=== PATIENT | female | born 1965 | race Two or more races ===

== ENCOUNTER 2018-02-01 05:07 | Emergency (ER) | payer BC ==
--- NOTE | 2018-02-01 06:19 | EDM.PDOC ---
<Alma Pedraza - Last Filed: 02/01/18 06:21> ED HPI GENERAL MEDICAL PROBLEM - General Chief Complaint: Abdominal Pain Time Seen by Provider: 02/01/18 06:14 Source of Information: Reports: Patient History Limitations: Reports: No Limitations - History of Present Illness INITIAL COMMENTS - FREE TEXT/NARRATIVE: pt has pain in the epigastric area. She believes this is from her hiatal hernia. She had a recent cat scan of the abdoman which showed that she has a hiatal hernia. There is some soft tissue fullness which is related to some reduncy in the hiatal hernia. Onset: Gradual Duration: Hour(s): Location: Reports: Abdomen Associated Symptoms: Reports: Other ( She describes pain in the epigastric area. 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: Hematologic History: Reports: Anemia - Past Surgical History GI Surgical History: Reports: Appendectomy, Cholecystectomy, Hernia Repair/Other Female Surgical History: Reports: Section, Tubal Ligation Social & Family History - Tobacco Use Smoking Status *Q: Never Smoker - Caffeine Use Caffeine Use: Reports: None - Recreational Drug Use Recreational Drug Use: No ED ROS GENERAL - Review of Systems Review Of Systems: See Below Constitutional: Reports: Decreased Appetite HEENT: Reports: No Symptoms Respiratory: Reports: No Symptoms Cardiovascular: Reports: No Symptoms Endocrine: Reports: No Symptoms GI/Abdominal: Reports: Abdominal Pain, Decreased Appetite : Reports: No Symptoms Musculoskeletal: Reports: No Symptoms Skin: Reports: No Symptoms Neurological: Reports: No Symptoms Psychiatric: Reports: No Symptoms Hematologic/Lymphatic: Reports: No Symptoms ED EXAM, GI/ABD - Physical Exam Exam: See Below Text/Narrative:: pt arrived with pain in the epigastric area. She has not vomited and she is having normal bms. Exam Limited By: No Limitations General Appearance: Alert, Mild Distress Ears: Normal TMs Nose: Normal Inspection Throat/Mouth: Normal Inspection Head: Atraumatic Neck: Normal Inspection Respiratory/Chest: No Respiratory Distress Cardiovascular: Regular Rate, Rhythm GI/Abdominal Exam: Tender, Other ( in the epigastric area. ) (Female) Exam: Deferred Rectal (Female) Exam: Deferred Back Exam: Normal Inspection Extremities: Normal Inspection Neurological: Alert, Oriented, Normal Cognition Course - Vital Signs Last Recorded V/S: Last Vital Signs Temp 96.7 F 02/01/18 05:44 Pulse 58 L 02/01/18 08:51 Resp 16 02/01/18 08:51 BP 150/87 H 02/01/18 08:51 Pulse Ox 98 02/01/18 08:51 - Orders/Labs/Meds Orders: Active Orders 24 hr Category Date Time Status EKG Documentation Completion [RC] ASDIRECTED Care 02/01/18 06:43 Active EKG 12 Lead [EK] Routine Ther 02/01/18 06:43 Ordered Labs: Laboratory Tests 02/01/18 02/01/18 02/01/18 Range/Units 06:17 06:17 06:17 WBC 5.9 (4.5-11.0) K/uL RBC 4.03 (3.30-5.50) M/uL Hgb 13.3 (12.0-15.0) g/dL Hct 38.5 (36.0-48.0) % MCV 96 (80-98) fL MCH 33 H (27-31) pg MCHC 35 (32-36) % Plt Count 275 (150-400) K/uL Neut % (Auto) 54 (36-66) % Lymph % (Auto) 37 (24-44) % Dickey % (Auto) 7 H (2-6) % Eos % (Auto) 2 (2-4) % Baso % (Auto) 0 (0-1) % Sodium 140 (140-148) mmol/L Potassium 3.4 L (3.6-5.2) mmol/L Chloride 106 (100-108) mmol/L Carbon Dioxide 26 (21-32) mmol/L Anion Gap 11.4 (5.0-14.0) mmol/L BUN 22 H (7-18) mg/dL Creatinine 0.7 (0.6-1.0) mg/dL Est Cr Clr Drug Dosing 67.53 mL/min Estimated GFR (MDRD) > 60 (>60) Glucose 103 (74-106) mg/dL Calcium 9.1 (8.5-10.1) mg/dL Total Bilirubin 0.3 (0.2-1.0) mg/dL AST 29 (15-37) U/L ALT 49 (12-78) U/L Alkaline Phosphatase 114 (46-116) U/L Troponin I (0.000-0.056) ng/mL Total Protein 6.9 (6.4-8.2) g/dL Albumin 3.4 (3.4-5.0) g/dL Globulin 3.5 (2.3-3.5) g/dL Albumin/Globulin Ratio 1.0 L (1.2-2.2) Amylase (25-115) U/L Lipase 113 (73-393) U/L Urine Color Urine Appearance Urine pH (4.5-8.0) Ur Specific Warne (1.008-1.030) Urine Protein (NEGATIVE) mg/dL Urine Glucose (UA) (NEGATIVE) mg/dL Urine Ketones (NEGATIVE) mg/dL Urine Occult Blood (NEGATIVE) Urine Nitrite (NEGATIVE) Urine Bilirubin (NEGATIVE) Urine Urobilinogen (NORMAL) mg/dL Ur Leukocyte Esterase (NEGATIVE) Urine RBC (0-5) Urine WBC (0-5) Ur Epithelial Cells Amorphous Sediment Urine Bacteria Urine Mucus 02/01/18 02/01/18 02/01/18 Range/Units 06:17 06:17 06:29 WBC (4.5-11.0) K/uL RBC (3.30-5.50) M/uL Hgb (12.0-15.0) g/dL Hct (36.0-48.0) % MCV (80-98) fL MCH (27-31) pg MCHC (32-36) % Plt Count (150-400) K/uL Neut % (Auto) (36-66) % Lymph % (Auto) (24-44) % Dickey % (Auto) (2-6) % Eos % (Auto) (2-4) % Baso % (Auto) (0-1) % Sodium (140-148) mmol/L Potassium (3.6-5.2) mmol/L Chloride (100-108) mmol/L Carbon Dioxide (21-32) mmol/L Anion Gap (5.0-14.0) mmol/L BUN (7-18) mg/dL Creatinine (0.6-1.0) mg/dL Est Cr Clr Drug Dosing mL/min Estimated GFR (MDRD) (>60) Glucose (74-106) mg/dL Calcium (8.5-10.1) mg/dL Total Bilirubin (0.2-1.0) mg/dL AST (15-37) U/L ALT (12-78) U/L Alkaline Phosphatase (46-116) U/L Troponin I < 0.017 (0.000-0.056) ng/mL Total Protein (6.4-8.2) g/dL Albumin (3.4-5.0) g/dL Globulin (2.3-3.5) g/dL Albumin/Globulin Ratio (1.2-2.2) Amylase 77 (25-115) U/L Lipase (73-393) U/L Urine Color Yellow Urine Appearance Slightly cloudy Urine pH 5.0 (4.5-8.0) Ur Specific Warne 1.025 (1.008-1.030) Urine Protein Negative (NEGATIVE) mg/dL Urine Glucose (UA) Normal (NEGATIVE) mg/dL Urine Ketones Negative (NEGATIVE) mg/dL Urine Occult Blood Negative (NEGATIVE) Urine Nitrite Negative (NEGATIVE) Urine Bilirubin Negative (NEGATIVE) Urine Urobilinogen Normal (NORMAL) mg/dL Ur Leukocyte Esterase Negative (NEGATIVE) Urine RBC 0-5 (0-5) Urine WBC 0-5 (0-5) Ur Epithelial Cells Moderate Amorphous Sediment Not seen Urine Bacteria Rare Urine Mucus Not seen 02/01/18 Range/Units 08:35 WBC (4.5-11.0) K/uL RBC (3.30-5.50) M/uL Hgb (12.0-15.0) g/dL Hct (36.0-48.0) % MCV (80-98) fL MCH (27-31) pg MCHC (32-36) % Plt Count (150-400) K/uL Neut % (Auto) (36-66) % Lymph % (Auto) (24-44) % Dickey % (Auto) (2-6) % Eos % (Auto) (2-4) % Baso % (Auto) (0-1) % Sodium (140-148) mmol/L Potassium (3.6-5.2) mmol/L Chloride (100-108) mmol/L Carbon Dioxide (21-32) mmol/L Anion Gap (5.0-14.0) mmol/L BUN (7-18) mg/dL Creatinine (0.6-1.0) mg/dL Est Cr Clr Drug Dosing mL/min Estimated GFR (MDRD) (>60) Glucose (74-106) mg/dL Calcium (8.5-10.1) mg/dL Total Bilirubin (0.2-1.0) mg/dL AST (15-37) U/L ALT (12-78) U/L Alkaline Phosphatase (46-116) U/L Troponin I < 0.017 (0.000-0.056) ng/mL Total Protein (6.4-8.2) g/dL Albumin (3.4-5.0) g/dL Globulin (2.3-3.5) g/dL Albumin/Globulin Ratio (1.2-2.2) Amylase (25-115) U/L Lipase (73-393) U/L Urine Color Urine Appearance Urine pH (4.5-8.0) Ur Specific Warne (1.008-1.030) Urine Protein (NEGATIVE) mg/dL Urine Glucose (UA) (NEGATIVE) mg/dL Urine Ketones (NEGATIVE) mg/dL Urine Occult Blood (NEGATIVE) Urine Nitrite (NEGATIVE) Urine Bilirubin (NEGATIVE) Urine Urobilinogen (NORMAL) mg/dL Ur Leukocyte Esterase (NEGATIVE) Urine RBC (0-5) Urine WBC (0-5) Ur Epithelial Cells Amorphous Sediment Urine Bacteria Urine Mucus Meds: Medications Discontinued Medications Generic Name Dose Route Start Last Admin Trade Name Freq PRN Reason Stop Dose Admin Al Hydroxide/Mg Hydroxide 15 0 ml 02/01/18 06:20 02/01/18 06:24 ml/ Lidocaine HCl 15 ml PO 02/01/18 06:21 15 ml ONETIME ONE Administration Departure - Departure Disposition: Home, Self-Care 01 Clinical Impression: GERD (gastroesophageal reflux disease) Qualifiers: Esophagitis presence: esophagitis presence not specified Qualified Code(s): K21.9 - Gastro-esophageal reflux disease without esophagitis - Discharge Information Referrals: PCP,None [Primary Care Provider] - Forms: ED Department Discharge Additional Instructions: Please follow-up with your surgeon who did your original surgical procedure for your hiatal hernia, call or return to the emergency department with worsening of symptoms <OfficerMario - Last Filed: 02/01/18 09:47> Departure - Departure Time of Disposition: 09:46 Condition: Fair - Assessment/Plan Plan: Assessment Acuity = acute Site and laterality = epigastric pain Etiology = probably related to hiatal hernia combination gastroesophageal reflux disease Manifestations = none Location of injury = Home Lab values = CBC, CMP unremarkable troponin negative 2 Plan She remained asymptomatic after the GI cocktail, she has a follow-up with her surgeon who initially did the first Nuz[place] procedure This note was dictated using [employer] voice recognition software please call with any questions on syntax or grammar.
[2018-02-01] MEDS ORDERED: Alum Hydrox/Mag Hydrox/Simeth 15 ML, Lidocaine 2% 15 ML PO ONE ×2 (06:20)
== END 2018-02-01 10:25 | disposition home or self-care (01) ==
LOC: JP.ED 05:07
DX: K21.9 Gastro-esophageal reflux disease without esophagitis (principal); I10 Essential (primary) hypertension
CPT/HCPCS: 36415; 80053; 81001; 82150; 83690; 84484; 85025; 93005; 99284; A9270

== ENCOUNTER 2019-04-17 09:10 | Day surgery (SDC) | payer BC ==
[2019-04-17] MEDS: Dextrose 5%-Lactated Ringers 1,000 ML IV SCH ×2 (06:49→14:24)
[~2019-04-17 09:10] MED LIST: Acetaminophen 500 MG Tab PO ONE; Albuterol/Ipratropium 3.0-0.5 MG/3 ML Neb Soln NEB ONE; Bupivacaine 0.5%/EPINEPHrine 1:200,000 50 ML MDV ONE; Dexamethasone 4 MG/ML SDV ONE; Glycopyrrolate 0.2 MG/ML 5 ML MDV ONE; Ketamine 50 MG in Sodium Chloride 0.9% 49.5 ML IV SCH; Ketamine 500 MG/5 ML MDV IV SCH; Lactated Ringers 1,000 ML ONE; Meropenem 500 MG SDV ONE; Neostigmine Methylsulfate 1 MG/ML 5 ML Syringe ONE; Ondansetron 4 MG/2 ML SDV ONE; Propofol 200 MG/20 ML SDV ONE; Rocuronium 50 MG/5 ML Vial ONE; Succinylcholine 200 MG/10 ML MDV ONE; ceFAZolin 2 GM in Premix Bag 1 BAG IV ONE; fentaNYL 250 MCG/5 ML SDV ONE
[2019-04-17] MEDS ORDERED: fentaNYL 100 MCG/2 ML SDV IVPUSH ONE (09:16)
[2019-04-17] MEDS ORDERED: hydrOXYzine HCl 100 MG/2 ML SDV IM ONE (09:16)
[2019-04-17] MEDS ORDERED: hydrOXYzine HCl 100 MG/2 ML SDV IM PRN (10:26)
[2019-04-17] MEDS ORDERED: Ondansetron 4 MG/2 ML SDV IVPUSH PRN (10:26)
[2019-04-17] MEDS ORDERED: Albuterol/Ipratropium 3.0-0.5 MG/3 ML Neb Soln INH PRN (10:27)
[2019-04-17] MEDS ORDERED: HYDROmorphone 0.5 MG/0.5 ML Syringe IVPUSH PRN (10:28)
[2019-04-17] MEDS ORDERED: HYDROmorphone 1 MG/ML Syringe IV PRN (10:28)
[2019-04-17] MEDS: Albuterol/Ipratropium 3.0-0.5 MG/3 ML Neb Soln INH SCH ×3 (11:21→20:51)
[2019-04-17] MEDS: traMADol 50 MG Tab PO PRN ×2 (11:42→17:53)
[2019-04-17] MEDS: ceFAZolin 2 GM in Sodium Chloride 0.9% 50 ML IV SCH ×2 (14:22→22:09)
[2019-04-17] MEDS: Famotidine 20 MG Tab PO SCH (20:51)
[2019-04-18] MEDS: Dextrose 5%-Lactated Ringers 1,000 ML IV SCH (05:41)
[2019-04-18] MEDS: ceFAZolin 2 GM in Sodium Chloride 0.9% 50 ML IV SCH (05:41)
[2019-04-18] MEDS: traMADol 50 MG Tab PO PRN (05:58)
[2019-04-18] MEDS: Albuterol/Ipratropium 3.0-0.5 MG/3 ML Neb Soln INH SCH (07:11)
[2019-04-18] MEDS ORDERED: Lisinopril 20 MG Tab PO SCH (09:00)
[2019-04-18] MEDS ORDERED: Hydrochlorothiazide 25 MG Tab PO SCH (09:00)
[2019-04-18] MEDS: Famotidine 20 MG Tab PO SCH (09:46)
[2019-04-18] MEDS ORDERED: Magnesium Hydroxide 400 MG/5 ML Susp 30 ML Cup PO ONE (10:00)
--- NOTE | 2019-04-18 10:52 | DISCH ---
ADMISSION DIAGNOSES: Incisional hernia, essential hypertension requiring no medication, arthralgia of right hip, chronic pain, lumbar herniated disk, and obesity, BMI 35. DISCHARGE DIAGNOSIS: Diagnostic laparoscopy with repair of incarcerated incisional hernia and incarcerated umbilical hernia and placement of Interceed mesh. Date of surgery is 04/17/2019. Surgeon, Shen Conway MD. HISTORY: Angela Cooper is a 54-year-old female with an incarcerated incisional hernia and incarcerated umbilical hernia. After preoperative evaluation and discussion of possible risks and possible complications, she wished to proceed with surgical procedure. HOSPITAL COURSE: Angela had her surgery on 04/17/2019. She had no operative complications. On postoperative day #1, her pain was controlled, she was ambulating, vital signs were stable, and she was able to be discharged to home. PHYSICAL EXAMINATION: GENERAL: Angela is a 54-year-old female. VITAL SIGNS: Height is 5 feet 2 inches, weight is 191 pounds 9.6 ounces. TPR is 97.9, 71, 16. Blood pressure 126/66. HEENT: Negative. NECK: Supple. HEART: Regular rate and rhythm. LUNGS: Clear. ABDOMEN: Dressings dry and intact. Abdominal binder is on. EXTREMITIES: Without peripheral edema. DISPOSITION: Discharged to home. CONDITION: Stable and improving. FOLLOWUP: Followup appointment with Shen Conway MD, on 04/25/2019 at 8 a.m. DISCHARGE MEDICATIONS: Home Prescriptions: 1. Colace 100 mg p.o. b.i.d. #62. 2. Milk of Magnesia 30 mL, 2 were sent home with the patient to take 1 daily as needed for constipation. 3. Tramadol 50 mg q.6 hours p.r.n. pain #28. She is to resume home medications of: 1. Albuterol inhaler 2 puffs every 4 hours p.r.n. wheezing. 2. Aspirin 81 mg daily. 3. Lisinopril/hydrochlorothiazide 20/12.5 mg 1 daily. 4. Ranitidine 150 mg oral b.i.d. DIET: Usual diet as tolerated. Drink 8 to 10 glasses of water a day. ACTIVITY: No lifting greater than 10 pounds for 4 weeks. Other activity: Walk at least 6 times daily inside your home. Do not drive for 1 week. Shower/bathing: May shower. DISCHARGE INSTRUCTIONS: Notify provider if any fever, nausea, or vomiting. Keep site clean and dry. Wear abdominal binder for 6 weeks with a pressure dressing over the hernia site. Use incentive spirometer 10 times every hour while awake.
--- NOTE | 2019-04-22 12:38 | OR ---
DATE OF PROCEDURE: 04/17/2019 SURGEON: Shen Conway MD PREOPERATIVE DIAGNOSIS: Incisional hernia. POSTOPERATIVE DIAGNOSES: 1. Incarcerated incisional hernia. 2. Incarcerated umbilical hernia. 3. Extensive intraabdominal adhesions. OPERATIVE PROCEDURES: Diagnostic laparoscopy with lysis of extensive adhesions: 1. Repair of incarcerated incisional hernia with mesh (55224). 2. Repair of incarcerated umbilical hernia with mesh (55235). 3. Placement of Vicryl mesh across the pelvic and abdominal wall to displace viscera and limit recurrent adhesion formation (25450). ANESTHESIA: General. WOOL DYER: Reyes Zamudio MS-3. INDICATION FOR PROCEDURE: This is a 54-year-old female presenting with increasingly symptomatic incisional hernia located in the upper end of the previous lower midline incision used for a section. There may be some umbilical involvement with this as well. Plan is to proceed with a diagnostic laparoscopy with possible laparotomy, lysis of adhesions, and repair of these hernias with mesh. Potential risks including bleeding, infection, injury to underlying viscera, problems with mesh becoming infected or the hernia recurring were all reviewed, and the patient wishes to proceed. DETAILS OF PROCEDURE: The patient was taken to the operating room and placed in a supine position. After general endotracheal anesthesia was induced, a Mendoza catheter was inserted and the abdomen prepped and draped. In the left lateral abdomen, a transverse incision was made and peritoneal cavity entered under direct vision with an Optiview trocar, inflated to 15 mmHg pressure with CO2. Laparoscope was then reinserted. No underlying trocar insertion site injuries were seen. Following this, two 5 mm trocars were placed in the left abdomen. Eventually, two 5 mm trocars were placed in the right abdomen and the right abdominal wall examined. The patient was noted to have 2 sites of hernias, one directly at the umbilicus, and one somewhat below that related to the previous lower midline incision. Both of these contained incarcerated omentum within them. The incarcerated components were then dissected free. Some of the hernia sac also excised. The fascia at the far edge of the hernias, namely, incisional hernia, was then approximated with a series of 2-0 Vicryl sutures and closed with . At this point, a 20.[address] mesh with the balloon positioning system was selected. Over the center of the hernia, a small stab wound was made and the mesh was then soaked in antibiotic-containing saline solution and placed in intraperitoneal location. This mesh was then pulled up against the abdominal wall with the polypropylene side of the mesh facing the abdominal wall and the balloon inflated. This positioned the balloon up against the abdominal wall, and 2 circumferential sets of absorbable tacking screws were then placed in the circumference of the mesh, and at that point, there appeared to be good fixation in all areas. The balloon was deflated and then withdrawn, and at that point, a Vicryl mesh was placed underneath the pelvic wall and underneath the mesh as well as remainder of the abdominal wall. This was a 30 cm2 portion of Vicryl mesh, and this was also soaked with some antibiotic-containing saline solution as well. The trocars were removed and the peritoneal cavity deflated. Prior to closure, bilateral transversus abdominis plane blocks had also been placed, and upon removal of the trocars, the 12 mm trocar site was closed with 0 Vicryl stitch at the fascia level and each incision with 4-0 Vicryl skin stitch. Dressing was applied. The patient was taken to the recovery room in satisfactory condition. Shen Conway MD /[id number]
== END 2019-04-18 10:45 ==
LOC: JP.SDS 09:10 → JP.SDSSCHI 09:10 → JP.MS 09:55 → JP.SDSSCHI 09:55 → UNDODISIN 04-18 10:45 → JP.SDS 04-18 10:45
PROVIDERS: ATTEND Surgery
DX: K43.0 Incisional hernia with obstruction, without gangrene (principal); K42.0 Umbilical hernia with obstruction, without gangrene; K66.0 Peritoneal adhesions (postprocedural) (postinfection); K21.9 Gastro-esophageal reflux disease without esophagitis; I10 Essential (primary) hypertension; M25.551 Pain in right hip; G89.29 Other chronic pain; M51.26 Other intervertebral disc displacement, lumbar region; E66.9 Obesity, unspecified; Z68.35 Body mass index [BMI] 35.0-35.9, adult
CPT/HCPCS: 36415; 44700; 49653; 49655; 80053; 83735; 84100; 85027; 94640; 94762; A9270; C1713; C1781; J0171; J0330; J0690; J1100; J1170; J2020; J2185; J2405; J2704; J2710; J2795; J3010; J3410; J3490; J7042; J7050; J7120; 88302; J7620-GY

== ENCOUNTER 2019-10-20 16:28 | Emergency (ER) | payer BC ==
--- NOTE | 2019-10-20 17:20 | EDM.PDOC ---
ED HPI GENERAL MEDICAL PROBLEM - General Chief Complaint: Fever Stated Complaint: FEVER, CHILLS, Time Seen by Provider: 10/20/19 17:00 Source of Information: Reports: Patient History Limitations: Reports: No Limitations - History of Present Illness INITIAL COMMENTS - FREE TEXT/NARRATIVE: 54-year-old female with a sore throat and fever for the past 6 to 8 hours. No rash, headache, ear pain, cough or shortness of breath. Symptoms are sore throat and fever only. Her history was obtained through an trousseau consultant as she speaks no Bengali. 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 (see below) (Patient did take ibuprofen before coming in, fever is now gone) - Related Data Allergies Allergy/AdvReac Type Severity Reaction Status Date / Time No Known Allergies Allergy Verified 10/20/19 16:57 Home Meds: Home Meds Hydrochlorothiazide/Lisinopril [Lisinopril/HCTZ 20-12.5 MG] 20 - 25 mg PO DAILY 02/01/18 [History] Aspirin [Ecotrin EC] 81 mg PO DAILY 04/18/18 [History] Albuterol Sulfate [Albuterol Sulfate Hfa] 2 puff INH Q4HR PRN 04/13/19 [History] Ranitidine HCl [Ranitidine] 150 mg PO BID 04/13/19 [History] Docusate Sodium [Colace] 100 mg PO BID #60 cap 04/18/19 [Rx] Magnesium Hydroxide [Milk of Magnesia] 30 ml PO DAILY PRN 2 Days #30 ml [Rx] Past Medical History Cardiovascular History: Reports: Hypertension Gastrointestinal History: Reports: Gastritis, GERD, Hiatal Hernia Genitourinary History: Reports: None 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 Trigeminal neuralgia of left side of face Psychiatric History: Reports: Depression Endocrine/Metabolic History: Reports: Obesity/BMI 30+ Hematologic History: Reports: Anemia - Infectious Disease History Infectious Disease History: Reports: Measles - Past Surgical History Cardiovascular Surgical History: Reports: None GI Surgical History: Reports: Cholecystectomy, Hernia Repair/Other Female Surgical History: Reports: Section, Tubal Ligation Endocrine Surgical History: Reports: None Neurological Surgical History: Reports: Lumbar Spine Musculoskeletal Surgical History: Reports: None Social & Family History - Family History Family Medical History: Noncontributory Endocrine/Metabolic: Reports: Diabetes, Type I - Tobacco Use Smoking Status *Q: Never Smoker - Caffeine Use Caffeine Use: Reports: Coffee ED ROS ENT - Review of Systems Review Of Systems: See Below Constitutional: Reports: Fever, Chills Respiratory: Denies: Shortness of Breath, Cough Cardiovascular: Denies: Chest Pain GI/Abdominal: Denies: Abdominal Pain, Nausea, Vomiting ED EXAM, ENT - Physical Exam Exam: See Below Exam Limited By: No Limitations General Appearance: Alert, No Apparent Distress Eye Exam: Bilateral Eye: Normal Inspection Mouth/Throat: Pharyngeal Erythema, Tonsillar Erythema Head: Atraumatic Neck: No: Lymphadenopathy (R), Lymphadenopathy (L) Respiratory/Chest: No Respiratory Distress, Lungs Clear Cardiovascular: Regular Rate, Rhythm Neurological: Alert, Oriented Skin: Warm, Dry Course - Vital Signs Last Recorded V/S: Last Vital Signs Temp 96.9 F 10/20/19 16:48 Pulse Resp BP 144/92 H 10/20/19 16:48 Pulse Ox - Orders/Labs/Meds Orders: Active Orders 24 hr Category Date Time Status CORONAVIRUS COVID-19, JOHN Stat Lab 10/20/19 18:00 Received CULTURE STREP A CONFIRMATION [RM] Routine Lab 10/20/19 17:12 Results STREP SCRN A RAPID W CULT CONF [RM] Routine Lab 10/20/19 17:12 Results - Re-Assessments/Exams Free Text/Narrative Re-Assessment/Exam: 10/20/19 17:39 Rapid strep was obtained. This was negative so it was followed by a COVID-19 test. 10/20/19 17:57 Patient is willing to isolate at home until COVID test returns. She will return sooner if she feels she is worsening, especially difficulty breathing. Departure - Departure Time of Disposition: 18:25 Disposition: Home, Self-Care 01 Clinical Impression: Pharyngitis Qualifiers: Pharyngitis/tonsillitis etiology: unspecified etiology Qualified Code(s): J02.9 - Acute pharyngitis, unspecified - Discharge Information Instructions: Sore Throat, [id number] Referrals: PCP,None [Primary Care Provider] - Forms: ED Department Discharge Care Plan Goals: Rest, fluids, ibuprofen should help with pain. We will be in touch with you with test results when available. Return anytime if worsening or concerns. Sepsis Event Note - Evaluation Sepsis Screening Result: No Definite Risk - Focused Exam Date Exam was Performed: 10/21/19 Time Exam was Performed: 07:09 - My Orders Last 24 Hours: My Active Orders 10/20/19 17:12 CULTURE STREP A CONFIRMATION [RM] Routine STREP SCRN A RAPID W CULT CONF [RM] Routine 10/20/19 18:00 CORONAVIRUS COVID-19, JOHN Stat - Assessment/Plan Last 24 Hours: My Active Orders 10/20/19 17:12 CULTURE STREP A CONFIRMATION [RM] Routine STREP SCRN A RAPID W CULT CONF [RM] Routine 10/20/19 18:00 CORONAVIRUS COVID-19, JOHN Stat
== END 2019-10-20 18:25 | disposition home or self-care (01) ==
LOC: JP.ED 16:28
DX: J02.9 Acute pharyngitis, unspecified (principal); K21.9 Gastro-esophageal reflux disease without esophagitis; I10 Essential (primary) hypertension; E66.9 Obesity, unspecified; Z68.36 Body mass index [BMI] 36.0-36.9, adult; Z79.82 Long term (current) use of aspirin; Z79.899 Other long term (current) drug therapy
CPT/HCPCS: 87081; 87880-QW; 99283; U0002

== ENCOUNTER 2020-05-04 15:37 | Emergency (ER) | payer BC ==
--- NOTE | 2020-05-04 16:22 | EDM.PDOC ---
ED HPI GENERAL MEDICAL PROBLEM - General Chief Complaint: Abdominal Pain Stated Complaint: ABD PAIN Time Seen by Provider: 05/04/20 16:15 Source of Information: Reports: Patient History Limitations: Reports: Language Barrier - History of Present Illness INITIAL COMMENTS - FREE TEXT/NARRATIVE: 55-year-old female with epigastric pain twice today, fairly uncomfortable. She has a history of a hiatal hernia repair and cholecystectomy. She is on ranitidine twice daily. No radiation of pain to her back. Her history was relayed through an procurement specialist. No fevers or chills, some nausea but no vomiting no diarrhea or constipation. She has had episodes of pain like this in the past but this seems worse. It is somewhat better now that she is here. Onset: Sudden Location: Reports: Other (Fairly localized to the epigastric area) Associated Symptoms: Reports: Malaise (Nausea but no vomiting), Nausea/Vomiting. 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 Trigeminal neuralgia of left side of face Psychiatric History: Reports: Depression Endocrine/Metabolic History: Reports: Obesity/BMI 30+ Hematologic History: Reports: Anemia - Infectious Disease History Infectious Disease History: Reports: Measles - Past Surgical History Cardiovascular Surgical History: Reports: None GI Surgical History: Reports: Cholecystectomy, Hernia Repair/Other Female Surgical History: Reports: Section, Tubal Ligation Endocrine Surgical History: Reports: None Neurological Surgical History: Reports: Lumbar Spine Musculoskeletal Surgical History: Reports: None Social & Family History - Family History Family Medical History: No Pertinent Family History Endocrine/Metabolic: Reports: Diabetes, Type I - Caffeine Use Caffeine Use: Reports: Coffee ED ROS GENERAL - Review of Systems Review Of Systems: See Below Constitutional: Reports: Malaise. Denies: Fever, Chills HEENT: Reports: No Symptoms Respiratory: Denies: Shortness of Breath Cardiovascular: Denies: Chest Pain GI/Abdominal: Reports: Abdominal Pain, Nausea. Denies: Constipation, Diarrhea, Hematemesis, Hematochezia, Vomiting : Reports: No Symptoms Musculoskeletal: Reports: No Symptoms Skin: Reports: No Symptoms Neurological: Reports: No Symptoms Psychiatric: Reports: No Symptoms ED EXAM, GI/ABD - Physical Exam Exam: See Below Exam Limited By: No Limitations General Appearance: Alert, No Apparent Distress (Looks uncomfortable but not distressed) Eyes: Bilateral: Normal Appearance (Normal hydration, no jaundice) Head: Atraumatic Respiratory/Chest: No Respiratory Distress, Lungs Clear Cardiovascular: Regular Rate, Rhythm GI/Abdominal Exam: Normal Bowel Sounds, Soft, Tender (Minimal tenderness very localized to the epigastric area, right upper and left upper quadrants nontender) Neurological: Alert, Oriented Psychiatric: Normal Affect, Normal Mood Course - Vital Signs Last Recorded V/S: Last Vital Signs Temp 96.3 F L 05/04/20 16:10 Pulse 63 05/04/20 16:10 Resp 16 05/04/20 16:10 BP 153/86 H 05/04/20 16:10 Pulse Ox 95 05/04/20 16:10 - Orders/Labs/Meds Labs: Laboratory Tests 05/04/20 05/04/20 Range/Units 16:39 16:39 WBC 5.8 (4.5-11.0) K/uL RBC 4.33 (3.30-5.50) M/uL Hgb 13.9 (12.0-15.0) g/dL Hct 42.1 (36.0-48.0) % MCV 97 (80-98) fL MCH 32 H (27-31) pg MCHC 33 (32-36) % Plt Count 269 (150-400) K/uL Neut % (Auto) 57 (36-66) % Lymph % (Auto) 32 (24-44) % [place] % (Auto) 7 H (2-6) % Eos % (Auto) 3 (2-4) % Baso % (Auto) 0 (0-1) % Sodium 141 (140-148) mmol/L Potassium 4.0 (3.6-5.2) mmol/L Chloride 105 (100-108) mmol/L Carbon Dioxide 28 (21-32) mmol/L Anion Gap 7.9 (5.0-14.0) mmol/L BUN 24 H (7-18) mg/dL Creatinine 0.9 (0.6-1.0) mg/dL Est Cr Clr Drug Dosing 55.86 mL/min Estimated GFR (MDRD) > 60 (>60) Glucose 134 H (74-106) mg/dL Calcium 8.9 (8.5-10.1) mg/dL Total Bilirubin 0.6 D (0.2-1.0) mg/dL AST 62 H D (15-37) U/L ALT 153 H (12-78) U/L Alkaline Phosphatase 119 H (46-116) U/L Troponin I < 0.017 (0.000-0.056) ng/mL Total Protein 7.1 (6.4-8.2) g/dL Albumin 3.5 (3.4-5.0) g/dL Globulin 3.6 H (2.3-3.5) g/dL Albumin/Globulin Ratio 1.0 L (1.2-2.2) Lipase 156 (73-393) U/L Meds: Medications Discontinued Medications Generic Name Dose Route Start Last Admin Trade Name Freq PRN Reason Stop Dose Admin Al Hydroxide/Mg Hydroxide 15 0 ml 05/04/20 16:53 05/04/20 16:57 ml/ Lidocaine HCl 15 ml PO 05/04/20 16:54 30 ml ONETIME ONE Administration - Re-Assessments/Exams Free Text/Narrative Re-Assessment/Exam: 05/04/20 17:21 CBC CMP and lipase were obtained. Patient was given a GI cocktail which provided her significant relief and within 10 minutes actually resolved her pain. White count is normal, she had minimal elevation of AST and ALT but bilirubin is normal, lipase is negative. I am going to have the patient stop her ranitidine and change to Prilosec 20 mg daily for 30 days. Recheck in 2 to 3 days if not improving satisfactorily. Return anytime if worsening. Departure - Departure Time of Disposition: 17:47 Disposition: Home, Self-Care 01 Clinical Impression: Abdominal pain Qualifiers: Abdominal location: upper abdomen, unspecified Qualified Code(s): R10.10 - Upper abdominal pain, unspecified - Discharge Information Instructions: Abdominal Pain, Adult, [id number] Referrals: PCP,None [Primary Care Provider] - Forms: ED Department Discharge Care Plan Goals: Deje de ranitidina y tome Prilosec en [place] lugar gage los prximos 30 hernandez. Aumente la dieta segn la tolerancia y considere volver a controlarla en los prximos 3 a 5 hernandez si no mejora, o regresar en cualquier momento si el dolor empeora y persiste.
[2020-05-04] MEDS ORDERED: Alum Hydrox/Mag Hydrox/Simeth 15 ML, Lidocaine 2% 15 ML PO ONE ×2 (16:53)
== END 2020-05-04 17:49 | disposition home or self-care (01) ==
LOC: JP.ED 15:37
DX: R10.13 Epigastric pain (principal); I10 Essential (primary) hypertension; K21.9 Gastro-esophageal reflux disease without esophagitis; E66.9 Obesity, unspecified; Z68.38 Body mass index [BMI] 38.0-38.9, adult; Z79.899 Other long term (current) drug therapy
CPT/HCPCS: 36415; 80053; 83690; 84484; 85025; 99284; A9270

== ENCOUNTER 2021-01-01 12:23 | Emergency (ER) | payer BC ==
--- NOTE | 2021-01-01 13:53 | EDM.PDOC ---
ED HPI GENERAL MEDICAL PROBLEM - General Chief Complaint: Lower Extremity Injury/Pain Stated Complaint: knee is pained Time Seen by Provider: 01/01/21 13:40 Source of Information: Reports: Patient, Old Records, RN History Limitations: Reports: Language Barrier - History of Present Illness INITIAL COMMENTS - FREE TEXT/NARRATIVE: 55 yo non-Dutch speaking female fell onto her L knee a couple days ago. Had recently had a knee replacement performed in [place], [place]. Has not been to her orthopedist or the clinic. Onset: Sudden Onset Date: 12/29/20 Duration: Day(s):, Constant Location: Reports: Lower Extremity, Left Quality: Reports: Ache Severity: Moderate Improves with: Reports: Rest Worsens with: Reports: Movement Context: Reports: Trauma Associated Symptoms: Reports: No Other Symptoms Left Knee Pain Score (Numeric/FACES): 4 - Related Data Allergies Allergy/AdvReac Type Severity Reaction Status Date / Time No Known Allergies Allergy Verified 01/01/21 13:22 Home Meds: Home Meds Hydrochlorothiazide/Lisinopril [Lisinopril/HCTZ 20-12.5 MG] 20 - 25 mg PO DAILY 02/01/18 [History] Aspirin [Adult Low Dose Aspirin EC] 81 mg PO BID 01/01/21 [History] Cholecalciferol (Vitamin D3) [Vitamin D] 5,000 unit PO DAILY 01/01/21 [History] Hydrocodone/Acetaminophen [Hydrocodon-Acetaminophn 10-325] 1 tab PO DAILY PRN 01/01/21 [History] metFORMIN HCl [Metformin HCl ER] 500 mg PO DAILY 01/01/21 [History] Past Medical History Cardiovascular History: Reports: Hypertension Gastrointestinal History: Reports: Gastritis, GERD, Hiatal Hernia Genitourinary History: Reports: 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 Trigeminal neuralgia of left side of face Psychiatric History: Reports: Depression Endocrine/Metabolic History: Reports: Obesity/BMI 30+ Hematologic History: Reports: Anemia - Infectious Disease History Infectious Disease History: Reports: Measles - Past Surgical History Cardiovascular Surgical History: Reports: None GI Surgical History: Reports: Cholecystectomy, Hernia Repair/Other, Other (See Below) Other GI Surgeries/Procedures: MANOMETRY ESOPHAGEAL, LISSETT Female Surgical History: Reports: Section, Tubal Ligation Endocrine Surgical History: Reports: None Neurological Surgical History: Reports: Lumbar Spine Musculoskeletal Surgical History: Reports: None Social & Family History - Family History Family Medical History: No Pertinent Family History Endocrine/Metabolic: Reports: Diabetes, Type I - Tobacco Use Tobacco Use Status *Q: Never Tobacco User Second Hand Smoke Exposure: No - Caffeine Use Caffeine Use: Reports: Soda Other Caffeine Use: 1- 2 cans week - Recreational Drug Use Recreational Drug Use: No Review of Systems - Review of Systems Review Of Systems: See Below Constitutional: Reports: No Symptoms Musculoskeletal: Reports: Joint Pain (L knee) Skin: Reports: No Symptoms Neurological: Reports: No Symptoms ED EXAM, GENERAL - Physical Exam Exam: See Below Exam Limited By: No Limitations General Appearance: Alert, WD/WN, No Apparent Distress Extremities: Normal Inspection, No Pedal Edema, Limited Range of Motion, Other (no new bleeding or opening of surgical wound). No: Normal Range of Motion (decreased due to recent surgery), Non-Tender Neurological: Alert, Oriented, CN II-XII Intact, Normal Cognition, No Motor/Sensory Deficits Skin Exam: Warm, Dry, No Rash, Ecchymosis (some normal post-op brusing of the L ankle area. ) Course - Vital Signs Last Recorded V/S: Last Vital Signs Temp 35.8 C L 01/01/21 13:29 Pulse 91 01/01/21 13:29 Resp 20 01/01/21 13:29 BP 122/75 01/01/21 13:29 Pulse Ox 100 01/01/21 13:29 - Orders/Labs/Meds Orders: Active Orders 24 hr Category Date Time Status Knee 3V Lt [CR] Stat Exams 01/01/21 13:48 Taken - Radiology Interpretation Free Text/Narrative:: L knee X-ray-neg Departure - Departure Time of Disposition: 14:47 Disposition: Home, Self-Care 01 Condition: Good Clinical Impression: Contusion of left knee Qualifiers: Encounter type: initial encounter Qualified Code(s): S80.02XA - Contusion of left knee, initial encounter - Discharge Information *PRESCRIPTION DRUG MONITORING PROGRAM REVIEWED*: Not Applicable *COPY OF PRESCRIPTION DRUG MONITORING REPORT IN PATIENT RACHEL: Not Applicable Instructions: Contusion, [id number] Referrals: PCP,None [Primary Care Provider] - Forms: ED Department Discharge Additional Instructions: Continue your present cares and medications. If you need more pain medicine discuss this with your doctor(s). Sepsis Event Note (ED) - Evaluation Sepsis Screening Result: No Definite Risk - Focused Exam Vital Signs: Vital Signs Temp Pulse Resp BP Pulse Ox 01/01/21 13:29 35.8 C L 91 20 122/75 100 01/01/21 12:40 35.8 C L 91 20 122/75 100 - My Orders Last 24 Hours: My Active Orders 01/01/21 13:48 Knee 3V Lt [CR] Stat - Assessment/Plan Last 24 Hours: My Active Orders 01/01/21 13:48 Knee 3V Lt [CR] Stat
--- NOTE | 2021-01-01 15:21 | CR ---
Knee 3V Lt CLINICAL HISTORY: Fall, recent knee replacement FINDINGS: No acute fracture or dislocation is noted. There are no osseous lesions. Patient has had recent total knee arthroplasty. Components appear well seated. Impression: Total knee arthroplasty appears intact
== END 2021-01-01 15:38 | disposition home or self-care (01) ==
LOC: JP.ED 12:23
DX: S80.02XA Contusion of left knee, initial encounter (principal); I10 Essential (primary) hypertension; E66.9 Obesity, unspecified; Z68.30 Body mass index [BMI] 30.0-30.9, adult; Z79.82 Long term (current) use of aspirin; Z96.659 Presence of unspecified artificial knee joint; Z79.84 Long term (current) use of oral hypoglycemic drugs; W18.39XA Other fall on same level, initial encounter
CPT/HCPCS: 73562-26-LT; 73562-LT; 99283-25

== ENCOUNTER 2021-09-04 00:32 | Emergency (ER) | payer BC, MEDICAID ==
[2021-09-04] MEDS: Famotidine 20 MG Tab PO ONE (02:14)
[2021-09-04] MEDS: Acetaminophen 500 MG Tab PO ONE (02:14)
== END 2021-09-04 03:11 | disposition home or self-care (01) ==
LOC: JP.ED 00:32
DX: K29.00 Acute gastritis without bleeding (principal); K21.9 Gastro-esophageal reflux disease without esophagitis; I10 Essential (primary) hypertension; E66.9 Obesity, unspecified; Z68.41 Body mass index [BMI] 40.0-44.9, adult; Z79.82 Long term (current) use of aspirin; Z79.84 Long term (current) use of oral hypoglycemic drugs; Z79.899 Other long term (current) drug therapy
CPT/HCPCS: 36415; 80053; 83690; 85025; 93005; 93010; 99283; 99284-25; A9270-GY

== ENCOUNTER 2021-10-28 06:59 | Day surgery (SDC) | payer MEDICAID ==
[2021-10-28] MEDS: Nozin Nasal Sanitizer NASBOTH SCH ×2 (07:00→20:34)
[2021-10-28] MEDS ORDERED: Bupivacaine 0.5% 50 ML MDV ONE (07:00)
[2021-10-28] MEDS ORDERED: Midazolam 1 MG/ML 2 ML SDV ONE (07:34)
[2021-10-28] MEDS ORDERED: fentaNYL 100 MCG/2 ML SDV ONE (07:34)
[2021-10-28] MEDS ORDERED: Propofol 200 MG/20 ML SDV ONE (07:34)
[2021-10-28] MEDS ORDERED: Lactated Ringers 1,000 ML IV SCH ×2 (08:00→09:00)
[2021-10-28 08:02] LABS: ESTIMATED GFR 86 mL/min (>60)
[2021-10-28] MEDS ORDERED: ceFAZolin 2 GM in Premix Bag 1 BAG IV ONE (08:30)
[2021-10-28] MEDS ORDERED: traMADol 50 MG Tab PO PRN (11:41)
[2021-10-28] MEDS ORDERED: Ondansetron 4 MG/2 ML SDV IVPUSH PRN (11:41)
[2021-10-28] MEDS ORDERED: HYDROmorphone 0.5 MG/0.5 ML Syringe IVPUSH PRN (11:41)
[2021-10-28] MEDS ORDERED: oxyCODONE 5 MG Tab PO PRN (11:41)
[2021-10-28] MEDS ORDERED: ceFAZolin 1 GM in Sodium Chloride 0.9% 50 ML IV SCH (11:45)
[2021-10-28] MEDS: Ketorolac 30 MG/ML SDV IVPUSH SCH ×2 (13:13→20:31)
[2021-10-28] MEDS: Acetaminophen 500 MG Tab PO SCH ×2 (13:13→20:30)
[2021-10-28] MEDS: oxyCODONE 5 MG Tab PO PRN (15:38)
[2021-10-28] MEDS: Sodium Chloride 0.9% 1,000 ML IV SCH (16:52)
[2021-10-28] MEDS: metFORMIN 500 MG Tab PO SCH (16:53)
[2021-10-28] MEDS: ceFAZolin 1 GM in Premix Bag 1 BAG IV SCH (17:00)
[2021-10-28] MEDS: Docusate Sodium 100 MG Cap PO SCH (20:30)
[2021-10-28] MEDS ORDERED: Nozin Nasal Sanitizer NASBOTH SCH (21:00)
[2021-10-29] MEDS: Sodium Chloride 0.9% 1,000 ML IV SCH (02:01)
[2021-10-29] MEDS: ceFAZolin 1 GM in Premix Bag 1 BAG IV SCH ×2 (02:01→09:52)
[2021-10-29] MEDS: Acetaminophen 500 MG Tab PO SCH ×3 (02:13→14:56)
[2021-10-29] MEDS: oxyCODONE 5 MG Tab PO PRN ×2 (07:56→16:40)
[2021-10-29] MEDS: metFORMIN 500 MG Tab PO SCH (07:57)
[2021-10-29] MEDS: Nozin Nasal Sanitizer NASBOTH SCH (08:42)
[2021-10-29] MEDS: Docusate Sodium 100 MG Cap PO SCH (08:43)
[2021-10-29] MEDS ORDERED: Enoxaparin 30 MG/0.3 ML Syringe SUBCUT SCH (09:00)
[2021-10-29] MEDS ORDERED: Lisinopril 20 MG Tab PO SCH (09:00)
[2021-10-29] MEDS ORDERED: [UNRECOGNIZED DRUG - OTHER] PO SCH (09:00)
[2021-10-29] MEDS ORDERED: HYDROCHLOROTHIAZIDE PO SCH (09:00)
[2021-10-29] MEDS ORDERED: LISINOPRIL PO SCH (09:00)
[2021-10-29] MEDS ORDERED: Non-Formulary Medication 1 Each (Metformin Hcl [Metformin Hcl Er] 500 MG Tab.Er.24h) PO SCH (09:00)
[2021-10-29] MEDS ORDERED: Hydrochlorothiazide 25 MG Tab PO SCH (09:00)
[2021-10-29] MEDS ORDERED: Celecoxib 200 MG Cap PO SCH (09:00)
== END 2021-10-29 17:20 | disposition home or self-care (01) ==
LOC: JP.SDS 06:59 → JP.2SS 11:41 → JP.SDS 10-29 17:20
PROVIDERS: ATTEND Specialist
DX: T84.498A Other mechanical complication of other internal orthopedic devices, implants and grafts, initial encounter (principal); M23.52 Chronic instability of knee, left knee; I10 Essential (primary) hypertension; K21.9 Gastro-esophageal reflux disease without esophagitis; E11.9 Type 2 diabetes mellitus without complications; F32.A Depression, unspecified
CPT/HCPCS: 27486; 36415; 73560-26-LT; 73560-LT; 80053; 82947; 85027; 97110-GP; 97116-GP; 97161-GP; 97530-GP; 97535-GP; A9270-GY; C1776; J0690; J1650; J1885; J2250; J2704; J3010; J3490; J7030; J7120

== ENCOUNTER 2022-09-15 06:21 | Day surgery (SDC) | payer MEDICAID ==
[2022-09-15] MEDS ORDERED: Nozin Nasal Sanitizer NASBOTH ONE (06:30)
[2022-09-15] MEDS ORDERED: Bupivacaine 0.5% 30 ML SDV ONE (06:54)
[2022-09-15 06:56] LABS: HEMATOCRIT 44.7 % (34.3-46.0); MEAN CORPUSCULAR HEMOGLOBIN 32.8 pg (31.6-35.5); MEAN CORPUSCULAR HGB CONC 33.6 g/dL (31.6-35.5); MEAN CORPUSCULAR VOLUME 97.6 fL (81.4-99.0); RED BLOOD CELL COUNT 4.58 M/uL (3.77-5.24); WHITE BLOOD CELL COUNT,WBC 7.7 K/uL (3.2-11.0)
[2022-09-15 07:16] LABS: ALANINE AMINOTRANSFERASE,ALT 61 U/L (12-78); ALBUMIN 3.9 g/dL (3.4-5.0); ALKALINE PHOSPHATASE 138 U/L (46-116); ASPARTATE AMNIOTRANSFERASE,AST 22 U/L (15-37); BILIRUBIN TOTAL 0.6 mg/dL (0.2-1.0); BLOOD UREA NITROGEN,BUN 27 mg/dL (7-18); CALCIUM 9.5 mg/dL (8.5-10.1); CARBON DIOXIDE,CO2 28 mmol/L (21-32); CHLORIDE,CL 98 mmol/L (100-108); CREATININE 0.9 mg/dL (0.6-1.0); EST CRCL DRUG DOSING (CG) 54.55 mL/min; ESTIMATED GFR 75 mL/min (>60); GLUCOSE RANDOM 217 mg/dL (74-106); POTASSIUM,K 3.7 mmol/L (3.6-5.2); SODIUM,NA 133 mmol/L (140-148)
[2022-09-15] MEDS ORDERED: fentaNYL 250 MCG/5 ML SDV ONE (07:18)
[2022-09-15] MEDS ORDERED: Rocuronium 50 MG/5 ML Vial ONE (07:19)
[2022-09-15] MEDS ORDERED: Dexamethasone 4 MG/ML SDV ONE (07:19)
[2022-09-15] MEDS ORDERED: Propofol 200 MG/20 ML SDV ONE (07:19)
[2022-09-15] MEDS ORDERED: Glycopyrrolate 0.2 MG/ML 5 ML MDV ONE (07:19)
[2022-09-15] MEDS ORDERED: Neostigmine Methylsulfate 1 MG/ML 5 ML Syringe ONE (07:19)
[2022-09-15] MEDS ORDERED: Ondansetron 4 MG/2 ML SDV ONE (07:19)
[2022-09-15] MEDS ORDERED: Succinylcholine 200 MG/10 ML MDV ONE (07:19)
[2022-09-15] MEDS ORDERED: Lactated Ringers 1,000 ML IV SCH (07:30)
[2022-09-15] MEDS ORDERED: ceFAZolin 2 GM in Premix Bag 1 BAG IV ONE (07:30)
[2022-09-15 07:38] LABS: ANION GAP 10.7 mmol/L (5.0-14.0)
[2022-09-15] MEDS ORDERED: Acetaminophen/HYDROcodone 325-5 MG Tab PO ONE (10:05)
== END 2022-09-15 12:06 | disposition home or self-care (01) ==
LOC: JP.SDS 06:21
PROVIDERS: ATTEND Specialist
DX: M65.862 Other synovitis and tenosynovitis, left lower leg (principal); M25.462 Effusion, left knee; I10 Essential (primary) hypertension; K21.9 Gastro-esophageal reflux disease without esophagitis; F32.A Depression, unspecified; E11.9 Type 2 diabetes mellitus without complications; E66.9 Obesity, unspecified; Z96.652 Presence of left artificial knee joint; Z79.899 Other long term (current) drug therapy
CPT/HCPCS: 29875; 36415; 80053; 85027; A9270; J0330; J0690; J1100; J2405; J2704; J2710; J3010; J3490; J7120

== ENCOUNTER 2022-09-16 16:42 | Emergency (ER) | payer MEDICAID | END 2022-09-16 18:03 | disposition home or self-care (01) | LOC: JP.ED 16:42 | DX: M96.830 Postprocedural hemorrhage of a musculoskeletal structure following a musculoskeletal system procedure (principal); I10 Essential (primary) hypertension; E11.9 Type 2 diabetes mellitus without complications; K21.9 Gastro-esophageal reflux disease without esophagitis; E66.9 Obesity, unspecified; Z79.84 Long term (current) use of oral hypoglycemic drugs; Z68.38 Body mass index [BMI] 38.0-38.9, adult | CPT/HCPCS: 99283; 99284 ==

== ENCOUNTER 2022-12-08 07:54 | Inpatient (IN) | payer MEDICAID ==
[2022-12-08 08:19] LABS: HEMATOCRIT 43.4 % (34.3-46.0); HEMOGLOBIN 14.9 g/dL (11.2-15.5); MEAN CORPUSCULAR HGB CONC 34.3 g/dL (31.6-35.5); MEAN CORPUSCULAR VOLUME 96.2 fL (81.4-99.0); RED BLOOD CELL COUNT 4.51 M/uL (3.77-5.24); WHITE BLOOD CELL COUNT,WBC 6.7 K/uL (3.2-11.0)
[2022-12-08] MEDS ORDERED: Lactated Ringers 1,000 ML IV SCH (08:30)
[2022-12-08 08:40] LABS: ALANINE AMINOTRANSFERASE,ALT 34 U/L (12-78); ALBUMIN 3.7 g/dL (3.4-5.0); ALKALINE PHOSPHATASE 124 U/L (46-116); ASPARTATE AMNIOTRANSFERASE,AST 21 U/L (15-37); BILIRUBIN TOTAL 0.4 mg/dL (0.2-1.0); BLOOD UREA NITROGEN,BUN 14 mg/dL (7-18); C-REACTIVE PROTEIN 0.24 mg/dL (0.0-0.3); CALCIUM 9.7 mg/dL (8.5-10.1); CARBON DIOXIDE,CO2 30 mmol/L (21-32); CHLORIDE,CL 101 mmol/L (100-108); CREATININE 0.8 mg/dL (0.6-1.0); ESTIMATED GFR 86 mL/min (>60); GLUCOSE RANDOM 170 mg/dL (74-106); PROTEIN TOTAL,TP 7.4 g/dL (6.4-8.2); SODIUM,NA 138 mmol/L (140-148)
[2022-12-08] MEDS ORDERED: ceFAZolin 2 GM in Premix Bag 1 BAG IV ONE (09:00)
[2022-12-08] MEDS: Nozin Nasal Sanitizer NASBOTH SCH ×2 (09:05→20:13)
[2022-12-08] MEDS ORDERED: Tranexamic Acid 920 MG in Sodium Chloride 0.9% 50 ML IV ONE (09:15)
[2022-12-08] MEDS ORDERED: Docusate Sodium 100 MG Cap PO PRN (10:38)
[2022-12-08] MEDS ORDERED: oxyCODONE 5 MG Tab PO PRN (10:38)
[2022-12-08] MEDS ORDERED: Ketorolac 30 MG/ML SDV IVPUSH PRN (10:38)
[2022-12-08] MEDS ORDERED: Morphine 2 MG/ML SYRINGE IVPUSH PRN (10:38)
[2022-12-08] MEDS ORDERED: fentaNYL 100 MCG/2 ML SDV ONE ×3 (10:41→13:13)
[2022-12-08] MEDS ORDERED: Midazolam 1 MG/ML 2 ML SDV ONE ×2 (10:41→11:36)
[2022-12-08] MEDS ORDERED: Propofol 200 MG/20 ML SDV ONE ×3 (10:41→12:43)
[2022-12-08] MEDS ORDERED: Lactated Ringers 1,000 ML ONE (11:20)
[2022-12-08] MEDS ORDERED: Bupivacaine 0.5% 30 ML SDV ONE (13:15)
[2022-12-08] MEDS: oxyCODONE 5 MG Tab PO PRN ×2 (14:45→16:20)
[2022-12-08] MEDS: Ondansetron 4 MG/2 ML SDV IVPUSH PRN ×2 (14:46→23:00)
[2022-12-08] MEDS: Sodium Chloride 0.9% 1,000 ML IV SCH (15:29)
[2022-12-08] MEDS: Acetaminophen 325 MG Tab PO SCH ×2 (16:20→21:28)
[2022-12-08] MEDS: metFORMIN 500 MG Tab PO SCH (16:57)
[2022-12-08] MEDS: glipiZIDE 5 MG Tab PO SCH (16:58)
[2022-12-08] MEDS: ceFAZolin 2 GM in Premix Bag 1 BAG IV SCH (17:28)
[2022-12-08] MEDS ORDERED: Nozin Nasal Sanitizer NASBOTH SCH (21:00)
[2022-12-09] MEDS: Sodium Chloride 0.9% 1,000 ML IV SCH (00:10)
[2022-12-09] MEDS: ceFAZolin 2 GM in Premix Bag 1 BAG IV SCH ×2 (02:49→10:50)
[2022-12-09] MEDS: Acetaminophen 325 MG Tab PO SCH ×2 (05:07→10:50)
[2022-12-09] MEDS ORDERED: Ketorolac 15 MG/ML SDV IVPUSH PRN (08:42)
[2022-12-09] MEDS: metFORMIN 500 MG Tab PO SCH (08:48)
[2022-12-09] MEDS: Ondansetron 4 MG/2 ML SDV IVPUSH PRN (08:48)
[2022-12-09] MEDS: oxyCODONE 5 MG Tab PO PRN (08:48)
[2022-12-09] MEDS: Nozin Nasal Sanitizer NASBOTH SCH (08:48)
[2022-12-09] MEDS: glipiZIDE 5 MG Tab PO SCH (08:49)
[2022-12-09] MEDS ORDERED: Lisinopril 20 MG Tab PO SCH (09:00)
[2022-12-09] MEDS ORDERED: Aspirin 325 MG Tab.EC PO SCH (09:00)
[2022-12-09] MEDS ORDERED: Hydrochlorothiazide 25 MG Tab PO SCH (09:00)
== END 2022-12-09 14:15 | disposition home or self-care (01) | DRG 468 ==
LOC: JP.SDS 07:54 → JP.2SS 10:38 → JP.SDS 15:36 → JP.2SS 15:37
PROVIDERS: ADMIT Specialist; ATTEND Specialist
PROC: 0SPD0JZ Removal of Synthetic Substitute from Left Knee Joint, Open Approach (ICD-10-PCS; principal; 2022-12-08)
PROC: 0SRD069 Replacement of Left Knee Joint with Oxidized Zirconium on Polyethylene Synthetic Substitute, Cemented, Open Approach (ICD-10-PCS; 2022-12-08)
DX: T84.84XA Pain due to internal orthopedic prosthetic devices, implants and grafts, initial encounter (principal); I10 Essential (primary) hypertension; E11.9 Type 2 diabetes mellitus without complications; M25.362 Other instability, left knee; E66.9 Obesity, unspecified; K21.9 Gastro-esophageal reflux disease without esophagitis; Z68.36 Body mass index [BMI] 36.0-36.9, adult
CPT/HCPCS: 36415; 73560-26-LT; 73560-LT; 80053; 82947; 85027; 85651; 86140; 97110-GP; 97161-GP; A9270-GY; C1713; C1776; J0690; J1885; J2250; J2405; J2704; J3010; J3490; J7030; J7120

== ENCOUNTER 2023-09-07 06:03 | Day surgery (SDC) | payer MEDICARE, MEDICAID ==
[2023-09-07 06:36] LABS: HEMATOCRIT 44.1 % (34.3-46.0); HEMOGLOBIN 15.3 g/dL (11.2-15.5); MEAN CORPUSCULAR HEMOGLOBIN 32.8 pg (31.6-35.5); MEAN CORPUSCULAR HGB CONC 34.7 g/dL (31.6-35.5); MEAN CORPUSCULAR VOLUME 94.6 fL (81.4-99.0); RED BLOOD CELL COUNT 4.66 M/uL (3.77-5.24); WHITE BLOOD CELL COUNT,WBC 7.7 K/uL (3.2-11.0)
[2023-09-07 07:03] LABS: A/G RATIO 0.9 (1.2-2.2); ALANINE AMINOTRANSFERASE,ALT 43 U/L (12-78); ALBUMIN 3.9 g/dL (3.4-5.0); ALKALINE PHOSPHATASE 124 U/L (46-116); ANION GAP 11.4 mmol/L (5.0-14.0); ASPARTATE AMNIOTRANSFERASE,AST 25 U/L (15-37); BILIRUBIN TOTAL 0.5 mg/dL (0.2-1.0); BLOOD UREA NITROGEN,BUN 30 mg/dL (7-18); CALCIUM 9.8 mg/dL (8.5-10.1); CARBON DIOXIDE,CO2 29 mmol/L (21-32); CHLORIDE,CL 103 mmol/L (100-108); CREATININE 0.8 mg/dL (0.6-1.0); EST CRCL DRUG DOSING (CG) 60.62 mL/min; ESTIMATED GFR 85 mL/min (>60); GLUCOSE RANDOM 149 mg/dL (74-106); POTASSIUM,K 3.4 mmol/L (3.6-5.2); PROTEIN TOTAL,TP 8.2 g/dL (6.4-8.2); SODIUM,NA 140 mmol/L (140-148)
[2023-09-07] MEDS: Nozin Nasal Sanitizer NASBOTH ONE (07:16)
[2023-09-07] MEDS ORDERED: fentaNYL 250 MCG/5 ML SDV ONE ×2 (07:19→09:15)
[2023-09-07] MEDS ORDERED: Glycopyrrolate 0.2 MG/ML 5 ML MDV ONE (07:20)
[2023-09-07] MEDS ORDERED: Propofol 200 MG/20 ML SDV ONE (07:20)
[2023-09-07] MEDS ORDERED: Rocuronium 50 MG/5 ML Vial ONE (07:20)
[2023-09-07] MEDS ORDERED: Succinylcholine 200 MG/10 ML MDV ONE (07:20)
[2023-09-07] MEDS ORDERED: Ondansetron 4 MG/2 ML SDV ONE (07:20)
[2023-09-07] MEDS ORDERED: Dexamethasone 4 MG/ML SDV ONE (07:20)
[2023-09-07] MEDS ORDERED: Neostigmine Methylsulfate 10 MG/10 ML MDV ONE (07:20)
[2023-09-07] MEDS: Lactated Ringers 1,000 ML IV SCH (07:28)
[2023-09-07] MEDS: Bupivacaine 0.5% 30 ML SDV ONE (08:40)
[2023-09-07] MEDS ORDERED: Lactated Ringers 1,000 ML ONE (09:34)
[2023-09-07] MEDS: Acetaminophen/oxyCODONE 325-5 MG Tab PO PRN (12:25)
== END 2023-09-07 13:56 | disposition home or self-care (01) ==
LOC: JP.SDS 06:03
PROVIDERS: ATTEND Specialist
DX: M22.92 Unspecified disorder of patella, left knee (principal); M25.462 Effusion, left knee; I10 Essential (primary) hypertension; K21.9 Gastro-esophageal reflux disease without esophagitis; E11.9 Type 2 diabetes mellitus without complications; E66.9 Obesity, unspecified
CPT/HCPCS: 27422; 29873; 36415; 80053; 85027; A9270; J0330; J0665; J1100; J2405; J2704; J2710; J3010; J3490; J7120

== ENCOUNTER 2023-09-08 11:06 | Emergency (ER) | payer MEDICARE, MEDICAID | END 2023-09-08 11:25 | disposition left against medical advice (07) | LOC: JP.ED 11:06 | DX: Z53.21 Procedure and treatment not carried out due to patient leaving prior to being seen by health care provider (principal) ==

== ENCOUNTER 2024-04-27 13:21 | Emergency (ER) | payer MEDICARE, MEDICAID ==
[2024-04-27] MEDS: methylPREDNISolone Sodium Succinate 125 MG/2 ML SDV IM ONE (14:08)
== END 2024-04-27 14:54 | disposition home or self-care (01) ==
LOC: JP.ED 13:21
DX: L50.9 Urticaria, unspecified (principal); I10 Essential (primary) hypertension; E11.9 Type 2 diabetes mellitus without complications; E66.9 Obesity, unspecified; Z90.49 Acquired absence of other specified parts of digestive tract; Z79.52 Long term (current) use of systemic steroids; Z79.899 Other long term (current) drug therapy; Z68.34 Body mass index [BMI] 34.0-34.9, adult
CPT/HCPCS: 96372; 99282; J2919

== ENCOUNTER 2024-04-29 13:14 | Emergency (ER) | payer MEDICARE, MEDICAID ==
[2024-04-29] MEDS: methylPREDNISolone Sodium Succinate 125 MG/2 ML SDV IVPUSH ONE (14:50)
== END 2024-04-29 15:19 | disposition home or self-care (01) ==
LOC: JP.ED 13:14
DX: L50.9 Urticaria, unspecified (principal); I10 Essential (primary) hypertension; E78.00 Pure hypercholesterolemia, unspecified; E66.9 Obesity, unspecified; E11.9 Type 2 diabetes mellitus without complications; Z79.899 Other long term (current) drug therapy; Z90.49 Acquired absence of other specified parts of digestive tract; Z68.34 Body mass index [BMI] 34.0-34.9, adult
CPT/HCPCS: 96374; 99283; J2919